=== PATIENT | male | born 2005 | race Caucasian/White ===

== ENCOUNTER 2023-11-17 20:03 | Emergency (ER) | payer OTHER, SELFPAY ==
--- NOTE | ~2023-11-17 | XR_ITS ---
EXAMINATION: XR ANKLE, LEFT CLINICAL INFORMATION: Left ankle swelling and pain COMPARISON: None available. TECHNIQUE: AP, lateral, and mortise views of the left ankle. FINDINGS: Soft tissue swelling laterally. No fracture. Normal alignment. XR/XR ankle LT min 3V IMPRESSION: Soft tissue swelling laterally. No fracture. Electronically signed by: Adria Westfall MD 11/17/2023 09:04 PM EDT RP
[2023-11-17 20:29] VITALS: BP 143/85; PULSE 90; RESP 18; TEMP 37.2; O2SAT 98; BMI 20.8
--- NOTE | 2023-11-17 20:30 | ED_ITS ---
HPI - Extremity Injury (Lower) General Chief Complaint: Extremity Injury, Lower Stated Complaint: L ANKLE PAIN SWOLLEN Time Seen by Provider: 11/17/23 22:13 Source: patient Mode of arrival: ambulatory Limitations: no limitations History of Present Illness ED Provider: lucrecia HPI Narrative: Apparently patient was playing basketball accidentally rolled it left ankle complaining of swelling and pain of the lateral malleolus no other injuries no deformity Related Data Previous Rx's ?Medication ?Instructions ?Recorded ibuprofen 600 mg tablet 600 mg PO Q6H PRN fever or pain 11/17/23 #30 tabs Allergies Allergy/AdvReac Type Severity Reaction Status Date / Time No Known Allergies Allergy Verified 11/17/23 20:31 Review of Systems 2 Review of Systems: Yes all other systems are reviewed and are negative PMFSH Social History Social History Advance Directives: No Advance Directives Information Provided: No Do you have a plan to hurt others: No Plan Physical Exam 2 Vital Signs: Vital Signs: Last Vital Signs Temp 98.9 F 11/17/23 20:29 Pulse 90 11/17/23 20:29 Resp 18 11/17/23 20:29 BP 143/85 H 11/17/23 20:29 Pulse Ox 98 11/17/23 20:29 O2 Del Method Room Air 11/17/23 20:29 BMI result Body Mass Index 20.8 Extrem: Ankle/foot/toe images: 1. Soft tissue swelling diffuse tenderness neurovascular intact Course Course Course Narrative: This is a Rapid Medical Exam performed in triage by Lorin Alfaro PA-C. Full HPI, ROS and PE to be performed by primary ED provider. 18 yo M with no significant past medical history presenting to the ED c/o left ankle pain and swelling after rolling it while playing basketball. PE: Left ankle swelling and tenderness, neurovascularly intact, limping gait. Plan: X-ray Medical Decision Making Medical Decision Making [facility] Narrative: Patient with left ankle sprain aircast was applied patient advised to use crutches for ambulation ibuprofen for pain Independent Interpretation I performed an independent interpretation of an: Plain X-Ray Interpretation: Negative for fracture Radiology Impression Discussion of test interpretation with radiology: I have reviewed the radiologist's reading. Discharge Plan Discharge Clinical Impression: Ankle sprain and strain Patient Disposition: Home, Self-Care Instructions: Ankle Sprain (ED) Additional Instructions: Rest apply ice keep it elevated Ibuprofen for pain Wear air cast for support Follow with PCP/Orthopedics Prescriptions: New ibuprofen 600 mg tablet 600 mg PO Q6H PRN (Reason: fever or pain) Qty: 30 0RF Print Language: Mohawk
[2023-11-17] MEDS: Ibuprofen 600 MG TABLET PO (22:43)
[2023-11-17 22:45] VITALS: BP 143/85; PULSE 90; RESP 18; TEMP 37.2; O2SAT 98
== END 2023-11-17 22:46 | disposition home or self-care (01) ==
PROVIDERS: Emergency Provider Internal Medicine
DX: S93.402A Sprain of unspecified ligament of left ankle, initial encounter (principal); S96.912A Strain of unspecified muscle and tendon at ankle and foot level, left foot, initial encounter; X50.1XXA Overexertion from prolonged static or awkward postures, initial encounter; Y93.67 Activity, basketball; Y92.310 Basketball court as the place of occurrence of the external cause; Y99.9 Unspecified external cause status
CPT/HCPCS: 73610; 99283